=== PATIENT | male | born 1965 | race Caucasian/White ===

== ENCOUNTER 2017-09-02 09:14 | Observation (INO) | payer OTHER ==
--- NOTE | 2017-09-02 09:25 | CPEKG ---
Heart Rate: 46 RR Interval: 1304 P-R Interval: 156 QRSD Interval: 90 QT Interval: 480 QTC Interval: 420 P [place]: 67 QRS [place]: 22 T Wave [place]: 48 EKG Severity - ABNORMAL ECG - EKG Impression: SINUS BRADYCARDIA EKG Impression: LEFT VENTRICULAR HYPERTROPHY EKG Impression: ST ELEV, PROBABLE NORMAL EARLY REPOL PATTERN Electronically Signed By: Dara Oh 02-Sep-2017 15:00:39
[2017-09-02] MEDS ORDERED: ASPIRIN 325 MG TAB PO ONE (09:29)
[2017-09-02 09:37] LABS: PLATELET COUNT 177 10^3/uL (150-400)
--- NOTE | 2017-09-02 09:51 | EDPHY ---
H & P Stated Complaint: cp intermittent over last week Time Seen by Provider: 09/02/17 09:34 HPI/ROS: CHIEF COMPLAINT: Chest pain HISTORY OF PRESENT ILLNESS: 51-year-old male presents with chest pain. Onset of left-sided chest discomfort this morning at 0730 [address] The chest pain was mild and persistent, without associated symptoms. He continues to have slight chest discomfort, rated 2/10. He has a long history of similar chest pain over the past 5 years, but has never had it evaluated before. The chest pain occurs sporadically and is not associated with exertion. He played basketball last evening for 2 hr and did not have chest pain or difficulty breathing. He has a strong family history of coronary artery disease disease. His brother had 2 stents placed at age 52 and his father had an MA at age less than 55. No history of hypertension, diabetes hyperlipidemia. Nonsmoker. REVIEW OF SYSTEMS: complete 10 point ROS negative except at noted in the HPI - Personal History Current Tetanus/Diphtheria Vaccine: Unsure - Medical/Surgical History Hx Asthma: No Hx Chronic Respiratory Disease: No Hx Diabetes: No Hx Cardiac Disease: No Hx Renal Disease: No Hx Cirrhosis: No Hx Alcoholism: No Hx HIV/AIDS: No Hx Splenectomy or Spleen Trauma: No Other PMH: denies - Social History Smoking Status: Never smoked - Physical Exam Exam: General Appearance: Alert, pleasant Eyes: Pupils equal and round, no conjunctival pallor or injection ENT, Mouth: Mucous membranes moist Neck: Normal inspection Respiratory: Lungs are clear to auscultation Cardiovascular: Regular rate and rhythm, no murmur Gastrointestinal: Abdomen is soft and nontender Neurological: A&O, nonfocal, normal gait Skin: Warm and dry, no rash Extremities: Nontender, no pedal edema Psychiatric: Mood and affect normal Constitutional: Initial Vital Signs Temperature (C) 36.7 C 09/02/17 09:16 Heart Rate 58 L 09/02/17 09:16 Respiratory Rate 18 09/02/17 09:16 Blood Pressure 137/88 H 09/02/17 09:16 O2 Sat (%) 96 09/02/17 09:16 O2 Delivery Mode Room Air Allergies/Adverse Reactions: shellfish derived Allergy (Verified 09/02/17 11:21) Home Medications: Medication Instructions Recorded Albuterol [Proventil Inhaler HFA 1 - 2 puffs IH Q4H PRN 09/02/17 (*)] Medical Decision Making - Diagnostics EKG Interpretation: EKG interpreted by me reveals sinus bradycardia, rate 46, LVH, ST segment elevation, consistent with early repolarization pattern, prominent T-waves anteriorly. Interpretation: Abnormal EKG Repeat EKG interpreted by me is unchanged. Imaging Results: Chest X-Ray 09/02/17 09:30 Impression: No acute thoracic abnormality. ED Course/Re-evaluation: This patient presents with recurrent chest discomfort. EKG reveals sinus bradycardia, with ST elevation in the anterior leads, most consistent with early repolarization. T-waves are prominent, especially in leads V2 and V3. 11:00 a.m.-results discussed with the patient. I strongly encouraged patient to be admitted for further cardiac evaluation. However he does not want to be admitted. He is a competent decision maker and clearly understands risks and benefits. He will discuss options with his and then let me know his decision. Noon-patient continues to have vague chest discomfort. I had a long discussion with the patient and his again. He now agrees to admission. Repeat EKG and troponin ordered. The hospitalist service was consulted for admission. Differential Diagnosis: Differential diagnosis includes though it is not limited to pneumonia, pneumothorax, pulmonary embolism, aortic dissection, pericarditis, acute coronary syndrome. - Data Points Laboratory Results: Laboratory Results 09/02/17 09:28 09/02/17 09:28 Medications Given: Discontinued Medications Aspirin (Aspirin) 325 mg PO EDNOW ONE Stop: 09/02/17 09:30 Last Admin: 09/02/17 09:35 Dose: 325 mg Enoxaparin Sodium (Lovenox) 40 mg SC DAILY LEANNE Stop: 03/02/18 08:59 Last Admin: 09/03/17 09:21 Dose: Not Given Departure - Departure Disposition: [facility] Inpatient Acute Clinical Impression: Chest pain Qualifiers: Chest pain type: precordial pain Qualified Code(s): R07.2 - Precordial pain Condition: Good
[2017-09-02] MEDS ORDERED: ONDANSETRON DISINTEGRATING 4 MG TAB PO PRN (12:19)
[2017-09-02] MEDS ORDERED: ACETAMINOPHEN 325 MG TAB PO PRN (12:19)
[2017-09-02] MEDS ORDERED: ONDANSETRON 4 MG/2 ML VIAL IVP PRN (12:19)
--- NOTE | 2017-09-02 12:24 | CPEKG ---
Heart Rate: 47 RR Interval: 1277 P-R Interval: 156 QRSD Interval: 86 QT Interval: 480 QTC Interval: 425 P [place]: 57 QRS [place]: 13 T Wave [place]: 42 EKG Severity - OTHERWISE NORMAL ECG - EKG Impression: SINUS BRADYCARDIA EKG Impression: ST ELEV, PROBABLE NORMAL EARLY REPOL PATTERN Electronically Signed By: Dara Oh 02-Sep-2017 15:00:31
--- NOTE | 2017-09-02 13:53 | GHP ---
[f rep st] HISTORY AND PHYSICAL DATE OF ADMISSION: 09/02/2017 CHIEF COMPLAINT: Chest pain. HISTORY OF PRESENT ILLNESS: This is a 51-year-old male with no significant past medical history, who presents with left-sided dull chest pain which began the morning of presentation. Patient describes a pinpoint location to the left of his mid clavicular line, for which he describes a persistent, mil dly intense, dull pain. Patient describes that the pain started today in the morning without any not able exertion and persisted. He reports having 1 previous episode of similar pain approximately 6 we eks ago. The pain again happened at rest and then resolved spontaneously. Patient has been able to exercise without any exertional symptoms including a 2-hour long basketball workout the evening prior to presentation, for which he experienced no chest discomfort, no shortness of breath. Patient brian es any associated diaphoresis, nausea, vomiting, dizziness, vision changes, headache. Denies any lida nges in his bowel habits recently. Denies dysuria, hematuria. Denies lower extremity edema, myalgia s, arthralgias, or recent upper respiratory infections. PAST MEDICAL HISTORY: None. SOCIAL HISTORY: Negative for tobacco. Drinks 1-2 glasses of wine a night. Denies any illicit drugs or marijuana. FAMILY HISTORY: Positive for a brother 4 years older with an LA at similar age status post cardiac s tenting. REVIEW OF SYSTEMS: A 10-point review of systems is negative with the exception of reported in HPI. PHYSICAL EXAMINATION: VITAL SIGNS: Blood pressure is 137/88, heart rate 58, respiratory rate 18, 96 % on room air, 36.7. GENERAL: This is a healthy-appearing, middle-aged male in no acute distress. H EENT: Notable for moist mucous membranes. Eye exam is negative for any icterus. CARDIAC: Patient is bradycardic but regular. No murmurs are appreciated. PULMONARY: Good respiratory effort. Clear to auscultation bilaterally. GASTROINTESTINAL: Positive bowel sounds. Abdomen is soft and nontend er. MUSCULOSKELETAL: Negative for any lower extremity edema. SKIN: Negative for any rashes. NEUR OLOGIC: Patient is alert and oriented x3. PSYCHIATRIC: He is pleasant and cooperative on interview and examination. DATA: White count 4.2, hematocrit 44.6, platelets of 177. Creatinine 0.8. Troponin less than 0.012 . EKG, which I personally reviewed and interpreted, shows sinus rhythm, bradycardia, normal axis, henrietta l intervals. There is ST elevation noted in leads V2 through V6 that appear to be early repolarizati on. LVH by voltage in the precordium is noted. Chest x-ray, which I personally reviewed and interpreted, shows no acute infiltrates or edema. ASSESSMENT AND PLAN: This is a 51-year-old male with no significant past medical history, presenting with chest discomfort. 1. Acute chest pain. Although the pain is atypical and it is nonexertional, quality, its location, and dull description are more worrisome. This is accentuated only by the brother's history. Otherwi se, patient has no real significant risk factors for cardiac ischemia. Initial objective data is leixs ssuring with negative troponin and EKG. Will admit the patient for serial troponins, EKGs, telemetry monitoring, and plan on stress testing in the morning if the patient rules out. Based on his early repolarization pattern, I suspect it will be most effective to treadmill the patient to stress and pr ovide nuclear imaging as the imaging modality tomorrow. I do believe this would be his preference as well as he reports that his brother had multiple effective treadmill tests before nuclear imaging wh ich led to stenting. 2. Left ventricular hypertrophy on EKG. Will order a transthoracic echocardiogram to rule out the p resence of left ventricular hypertrophy as the patient does not have a clinical history that would in dicate a reason for having hypertrophy. 3. Sinus bradycardia. Suspect this is likely his baseline. Will continue to monitor on telemetry. 4. Borderline hypertension. Will monitor overnight. I suspect we are seeing surreptitiously high p ressures secondary to the stress of acute hospitalization. 5. Prophylaxis with Lovenox. 6. Diet regular. 7. Disposition. I expect in less than 2 midnights, if the patient rules out overnight, he would be a candidate for disposition tomorrow. I have discussed the case with the emergency room physician. Patient will be triaged to the progressive care unit for care. /[id number]/MODL
[2017-09-02] MEDS ORDERED: ALBUTEROL 60 PUFFS/8 GM MDI IH PRN (14:01)
--- NOTE | 2017-09-02 16:19 | ECHO ---
[email or web address] [address] [address] Main: [phone] Fax: Transthoracic Echocardiogram Name: LAUREN MCMILLAN MR#: [id number] Study Date: 09/02/2017 Study Time: 02:09 PM Date of : 1965 Age: 51 year(s) Height: 180.3 cm (71 in.) Weight: 80.29 kg (177 lb.) BSA: 2 m2 Gender: Male Examination: Echo Indication: Image Quality: Adequate Contrast: Requested by: Radha Grande BP: 126 mmHg/87 mmHg Heart Rate: Rhythm: Indication: Procedure Staff Food Service Driver: Halley Whatley [facility] Reading Physician: Bal Ty MD Requesting Provider: Conclusions: Normal global systolic LV function. EF is 63 %. Mild mitral valve regurgitation is present. Mild aortic valve regurgitation is present. Measurements: Chambers Valvular Assessment AV/MV Valvular Assessment TV/PV Normal Normal Normal Name Value Range Name Value Range Name Value Range Ao Radha (2D): 3.9 cm (1.4 cm-2.6 AV meanP mmHg ( - ) PV Vmax: 0.88 m/s (0.6 m/s-0.9 cm) ALEK (VTI): 3.4 cm ( - ) m/s) IVSd (2D): 1.1 cm (0.6 cm-1.1 MV E Vmax: 0.94 m/s ( - ) PV PGmax: 3 mmHg ( - ) cm) MV A Vmax: 0.78 m/s ( - ) LVDd (2D): 4.7 cm (4.2 cm-5.9 MV E/A: 1.21 ( - ) cm) MV PHT: 0.065 s ( - ) LVDs (2D): 3.0 cm (2.1 cm-4 cm) MVA (PHT): 3.4 s ( - ) LVPWd (2D): 1.1 cm (0.6 cm-1 cm) LVOTd 2.3 cm 2.3 cm mm LVEF (BP): 63 % (>=55 %) RVDd(2D): 3.0 cm (1.9 cm-3.8 cmmm) Continued Measurements: Chambers Valvular Assessment AV/MV Valvular Assessment TV/PV Name Value Name Value Name Value LADs: 3.8 cm MV DecTime: 215 m/s CVP (est.): 5 mmHg LADs Lon.1 cm MV E' Septal: 0.10 m/s Patient: LAUREN MCMILLAN Study Date: 09/02/2017 Page 1 of 2 02:09 PM LA Area: 21.9 cm2 MV E/E' Septal: 9.20 LA Volume: 73 ml MV E/E' Lateral: 8.10 LA Volume Index: 36.5 ml/m2 RA Area: 22.5 cm2 Additional Vessels Name Value Ao Ascendin.7 cm Inferior Vena Cava: 1.5 cm Findings: Left Ventricle: Normal size left ventricle. No LV hypertrophy. Normal global systolic LV function. EF is 63 %. No regional wall motion abnormality. Normal diastolic LV function. Right Ventricle: Normal size right ventricle. Normal RV function. Left Atrium: The left atrium is mildly dilated. Right Atrium: The right atrium is normal in size. Mitral Valve: The mitral valve is normal in appearance and function. The mitral valve leaflets appear redundant. Mild mitral valve regurgitation is present. No mitral stenosis is present. Aortic Valve: The aortic valve is normal in appearance and function. Mild aortic valve regurgitation is present. No aortic valve stenosis is present. Tricuspid Valve: The tricuspid valve is normal in appearance and function. Trivial tricuspid valve regurgitation. The pulmonary artery pressure is normal. Pulmonic Valve: The pulmonic valve is normal in appearance and function. There is no pulmonic regurgitation seen. Aorta: The aorta is normal. Normal size aortic root measuring 3.9 cm. Normal size ascending aorta measuring 3.7 cm. IVC: The IVC is normal sized. Pericardium: No pericardial effusion. No pleural effusion. (No Signature Object) Patient: LAUREN MCMILLAN Study Date: 09/02/2017 Page 2 of 2 02:09 PM [id number]
[2017-09-03] MEDS ORDERED: ENOXAPARIN 40 MG/0.4 ML SYR SC SCH (09:00)
--- NOTE | 2017-09-03 10:52 | PDCARST ---
CAR Stress Test Results Type of Stress Test: Nuclear TM stress test Indication: cp, fhx CAD Description of Procedure: After informed consent was obtained, pt was exercised according to Maximilian Protocol. Monitoring was performed with standard stress line tester electrode placement. Vital signs were monitored according to protocol throughout the procedure. STRESS EKG AND HEMODYNAMIC DATA. Exercise time: 13 min. This is equivalent to: 13 METS. Resting heart rate: 57 bpm. Resting blood pressure: 134/74 mmHg. Resting O2 saturation: 96 %. Peak heart rate: 155 bpm. This is 92 % of age predicted maximum heart rate response. Peak blood pressure: 170/74 mmHg. Exercise O2: 96%. Arrhythmias: Rare PACs and occasional PVC fusion beats. Reason for termination: The test was stopped due to maximal effort. Symptoms: The patient experienced no typical symptoms of angina during stress or recovery. STRESS TEST ANALYSIS. Baseline ECG: SR. Stress ECG: sinus tach. No exercise induced ischemic ECG changes. Rhythm: Rare PACs and occasion PVC fusion beats noted during exercise and recovery. Blood pressure: Normal blood pressure response to exercise. Exercise tolerance : The patient has above average exercise tolerance adjusted for age and gender. Symptoms: No exercise induced symptoms. Impression: The Maxwell Treadmill Score is +13, consistent with low cardiovascular risk (<1% annual mortality). Conclusion: Await nuclear images.
[2017-09-03 12:20] VITALS: BP 118/81
--- NOTE | 2017-09-03 16:55 | GDS ---
[f rep st] DISCHARGE SUMMARY DISCHARGE DIAGNOSES: Include chest pain. HISTORY OF PRESENT ILLNESS: A 51-year-old male with limited past medical history, who presents with complaints of left-sided chest pain. For details of patient's initial presentation, please see the H istory and Physical dated 09/02/2017. CONSULTATIVE SERVICES: None. PROCEDURES: On 09/03/2017, patient underwent treadmill Cardiolite stress testing that showed no mary cible ischemia. On 09/02/2017, patient underwent transthoracic echocardiogram that showed no left ve ntricular hypertrophy, valvular abnormalities, with a normal ejection fraction. HOSPITAL COURSE BY ISSUE: 1. Chest pain. Patient had no significant past medical history pertinent for ischemic disease but d id have a brother similar age, who had recently been diagnosed with an OR. Patient ruled out overnig ht on PCU with serial troponins and EKGs, and was taken for treadmill Cardiolite testing. The stress test was entirely negative, so he will be discharged to home with outpatient followup. 2. LVH by EKG. We did obtain a transthoracic echocardiogram that showed normal cardiac anatomy incl uding ejection fraction and the absence of any LVH. Patient is being discharged, again, with outpati ent followup. MEDICATIONS AT THE TIME OF TRANSFER: Please reference the med rec printed on 09/03/2017. FOLLOWUP APPOINTMENTS: Include with Primary Care for ongoing monitoring of his blood pressure. Jolie ent did have higher blood pressures during the initial part of his hospitalization, which did settle to normal prior to discharge without treatment. I spent greater than 30 minutes in the planning and coordination of this discharge. /[id number]/MODL
== END 2017-09-03 13:07 | disposition home or self-care (01) ==
LOC: F2W 13:59
PROVIDERS: ADMIT Hospitalist; ATTEND Hospitalist
DX: R07.9 Chest pain, unspecified (principal); R00.1 Bradycardia, unspecified; I51.7 Cardiomegaly; Z82.49 Family history of ischemic heart disease and other diseases of the circulatory system
CPT/HCPCS: 71046; 78452; 93005; 93017; 93306; 99285; A9500; G0378; J1650